=== PATIENT | female | born 1940 | race Caucasian/White ===

== ENCOUNTER 2022-06-24 15:29 | Emergency (ER) | payer MEDICARE, MEDICAID ==
[~2022-06-24] VITALS: Ht 162.6 cm; Wt 80.9 kg
[2022-06-24] MEDS ORDERED: hydrALAZINE 20mg/ml inj. IV ONE (16:15)
[2022-06-24 16:45] LABS: EOSINOPHILS # (AUTO) 0.1 X10'3 (0-0.9); EOSINOPHILS % (AUTO) 2.2 % (0-6); HEMATOCRIT 35.4 % (35.0-45.0); HEMOGLOBIN 11.9 g/dl (12.0-16.0); LYMPHOCYTES # (AUTO) 1.4 X10'3 (1.1-4.8); LYMPHOCYTES % (AUTO) 30.1 % (21-51); MEAN CORPUSCULAR HEMOGLOBIN 29.9 PG (27.0-31.0); MEAN CORPUSCULAR HGB CONC 33.7 g/dL (33.0-36.5); MEAN CORPUSCULAR VOLUME 88.8 FL (78-98); MEAN PLATELET VOLUME 7.8 FL (7.4-10.4); MONOCYTES # (AUTO) 0.4 X10'3 (0-0.9); MONOCYTES % (AUTO) 8.8 % (2-12); NEUTROPHILS # (AUTO) 2.6 X10'3 (1.8-7.7); NEUTROPHILS % (AUTO) 57.9 % (42-75); PLATELET COUNT 268 X10'3 (140-440); RED BLOOD COUNT 3.98 X10'6 (4.20-5.60); RED CELL DISTRIBUTION WIDTH 13.8 % (11.5-14.5); WHITE BLOOD COUNT 4.6 X10'3 (4.5-11.0)
[2022-06-24 16:57] LABS: ALANINE AMINOTRANSFERASE 16 U/L (12-78); ALBUMIN 3.5 G/DL (3.4-5.0); ALBUMIN/GLOBULIN RATIO 1.3 (1.1-1.5); ALKALINE PHOSPHATASE 63 IU/L (46-116); ANION GAP 5 (8-16); ASPARTATE AMINO TRANSFERASE 15 U/L (10-37); BILIRUBIN,TOTAL 0.2 MG/DL (0.1-1.0); BLOOD UREA NITROGEN 21 MG/DL (7-18); BUN/CREATININE RATIO 24.7 (10.0-20.0); CHLORIDE 100 MMOL/L (99-107); CREATININE 0.85 MG/DL (0.40-0.90); GLUCOSE 110 MG/DL (70-104); POTASSIUM 4.2 MMOL/L (3.5-5.1); SODIUM 134 MMOL/L (135-145); TOTAL CARBON DIOXIDE 28.9 MMOL/L (24-32); TOTAL PROTEIN 6.3 G/DL (6.4-8.2); eGFR 65 ML/MIN
[2022-06-24] MEDS ORDERED: metoprolol succinate 25mg (24-HOUR) SR. Tablet PO STA (17:11)
[2022-06-24 18:19] VITALS: BP 160/62
== END 2022-06-24 18:15 | disposition home or self-care (01) ==
LOC: ER 15:32
DX: I10 Essential (primary) hypertension (principal); R51.9 Headache, unspecified
CPT/HCPCS: 36415; 70450; 71045; 80053; 83880; 84484; 85025; 93005; 96374; 99285; J0360

== ENCOUNTER 2022-06-26 09:42 | Inpatient (IN) | payer MEDICARE, MEDICAID ==
[~2022-06-26] VITALS: Ht 162.6 cm; Wt 80.9 kg
[2022-06-26] MEDS ORDERED: aspirin 81mg tab.chew PO ONE (10:35)
[2022-06-26 10:58] LABS: EOSINOPHILS # (AUTO) 0.1 X10'3 (0-0.9); EOSINOPHILS % (AUTO) 1.8 % (0-6); HEMATOCRIT 33.9 % (35.0-45.0); HEMOGLOBIN 11.6 g/dl (12.0-16.0); LYMPHOCYTES # (AUTO) 1.2 X10'3 (1.1-4.8); LYMPHOCYTES % (AUTO) 33.2 % (21-51); MEAN CORPUSCULAR HGB CONC 34.2 g/dL (33.0-36.5); MEAN CORPUSCULAR VOLUME 87.9 FL (78-98); MEAN PLATELET VOLUME 7.5 FL (7.4-10.4); MONOCYTES # (AUTO) 0.3 X10'3 (0-0.9); MONOCYTES % (AUTO) 7.5 % (2-12); NEUTROPHILS # (AUTO) 2.1 X10'3 (1.8-7.7); NEUTROPHILS % (AUTO) 56.5 % (42-75); PLATELET COUNT 284 X10'3 (140-440); RED BLOOD COUNT 3.86 X10'6 (4.20-5.60); RED CELL DISTRIBUTION WIDTH 13.6 % (11.5-14.5); WHITE BLOOD COUNT 3.7 X10'3 (4.5-11.0)
[2022-06-26 11:22] LABS: ALANINE AMINOTRANSFERASE 27 U/L (12-78); ALBUMIN 3.6 G/DL (3.4-5.0); ALBUMIN/GLOBULIN RATIO 1.3 (1.1-1.5); ALKALINE PHOSPHATASE 60 IU/L (46-116); ANION GAP 6 (8-16); ASPARTATE AMINO TRANSFERASE 15 U/L (10-37); BILIRUBIN,TOTAL 0.3 MG/DL (0.1-1.0); BLOOD UREA NITROGEN 13 MG/DL (7-18); BUN/CREATININE RATIO 17.8 (10.0-20.0); CALCIUM 8.8 MG/DL (8.5-10.1); CHLORIDE 95 MMOL/L (99-107); CREATININE 0.73 MG/DL (0.40-0.90); GLUCOSE 92 MG/DL (70-104); MAGNESIUM 1.9 MG/DL (1.5-2.4); POTASSIUM 4.1 MMOL/L (3.5-5.1); SODIUM 128 MMOL/L (135-145); TOTAL CARBON DIOXIDE 27.2 MMOL/L (24-32); TOTAL PROTEIN 6.3 G/DL (6.4-8.2); eGFR 77 ML/MIN
[2022-06-26] MEDS ORDERED: nitroGLYCERIN 1gm ointment UD TP ONE (13:40)
[2022-06-26] MEDS ORDERED: amLODIPine 5mg tablet PO ONE (13:45)
[2022-06-26] MEDS ORDERED: amLODIPine 2.5mg tablet PO ONE (13:55)
[2022-06-26] MEDS ORDERED: morphine 2 MG/ML inj. syringe IV PRN ×2 (14:30)
[2022-06-26] MEDS ORDERED: HYDROcodone/acetaminophen 5mg/325mg tablet PO PRN (14:30)
[2022-06-26] MEDS ORDERED: magnesium hydroxide 30ml (MOM) UD suspension PO PRN (14:30)
[2022-06-26] MEDS ORDERED: acetaminophen 325mg tablet PO PRN ×2 (14:30)
[2022-06-26] MEDS ORDERED: mag hydrox/Alum hydrox/simeth 30ml oral suspension PO PRN (14:30)
[2022-06-26] MEDS ORDERED: ondansetron/PF 4mg/2ml inj IV PRN (14:30)
[2022-06-26] MEDS ORDERED: LEVO150T8 PO (15:34)
[2022-06-26] MEDS ORDERED: NITR0.4T51 SL (15:34)
[2022-06-26] MEDS ORDERED: LISI40TA13 PO (15:34)
[2022-06-26 17:05] VITALS: BP 222/68
--- NOTE | 2022-06-26 17:05 | NUR ---
Patient in room PCU 3024. I have received report from Daxa ROJAS and had the opportunity to ask questions and assume patient care. Pt arrived via wheelchair. Pt alert and oriented x 4. No distress noted. PIV noted to R AC 22g. BP 222/68 HR 51 T 97.1F, RR 16, Pain 0/10. Pt has nitro paste patch to left upper chest
[2022-06-26] MEDS ORDERED: cloNIDine 0.1 mg tablet PO ONE (17:35)
[2022-06-26] MEDS ORDERED: nitroGLYCERIN 0.4mg SUBLingual tab SL PRN (17:40)
--- NOTE | 2022-06-26 18:15 | NUR ---
Problems reprioritized. Patient report given, questions answered & plan of care reviewed with Aubrie INSPECTOR.
--- NOTE | 2022-06-26 18:57 | NUR ---
Pt reported to LN that she controls her DM2 with diet at home, most recent A1C was 6.0. LN updated pt diet to CC/HH.
[2022-06-26 19:00] VITALS: BP 200/70
[2022-06-26 19:25] LABS: CLARITY,URINE CLEAR (Clear); COLOR,URINE YELLOW (Yellow); GLUCOSE, URINE NEGATIVE (Neg); KETONES,URINE NEGATIVE (Neg); LEUKOCYTE ESTERASE ,URINE NEGATIVE (Neg); NITRITES, URINE NEGATIVE (Neg); OCCULT BLOOD,URINE NEGATIVE (Neg); PROTEIN,URINE TRACE mg/dl (Neg); UROBILINOGEN,URINE 0.2 E.U/dL (0.2-1.0)
[2022-06-26 19:29] LABS: UA COLLECTION TYPE VOIDED
[2022-06-26 19:37] LABS: BACTERIA,URINE NONE SEEN /HPF (Neg); HYALINE CASTS 0-3 /LPF (NEGATIVE); MUCUS STRANDS FEW /LPF (Neg); RBC,URINE 0-2 /HPF (0-2); SQUAMOUS EPITHELIAL CELL,UR FEW /LPF (FEW); WBC,URINE 0-4 /HPF (0-4)
--- NOTE | 2022-06-26 19:38 | NUR ---
Pt given one time dose of Clonidine @1735 per MD, BP upon arrival 222/68 on previous shift. BP @1926 - 140/58, pt resting comfortably, no c/o pain att.
[2022-06-26] MEDS: docusate sod 100mg capsule PO SCH (20:00)
--- NOTE | 2022-06-26 22:09 | NUR ---
Page sent to @ approx 2200 -Pt 3024A, Yarelis Villalobos, admit 06/26 hypertensive urgency, came to floor @ approx 1700, BP 222/68, MD gave one time dose PO clonidine @1736, BP came down to 140/58 @ 1926. BP @ 2145 - 175/57, no c/o pain. Please advise-Aubrie Bradley@[phone].
[2022-06-26] MEDS ORDERED: cloNIDine 0.1 mg tablet PO PRN ×2 (22:25→22:30)
[2022-06-26 23:00] VITALS: BP 152/58
[2022-06-27 03:00] VITALS: BP 129/56
[2022-06-27 06:00] VITALS: BP 158/60
--- NOTE | 2022-06-27 07:02 | NUR ---
This RN evaluated and agrees w/the physical assessment f/this patient.
[2022-06-27 07:23] LABS: BASOPHILS % (AUTO) 1.2 % (0-1); EOSINOPHILS # (AUTO) 0.1 X10'3 (0-0.9); EOSINOPHILS % (AUTO) 1.6 % (0-6); LYMPHOCYTES # (AUTO) 1.3 X10'3 (1.1-4.8); LYMPHOCYTES % (AUTO) 35.5 % (21-51); MEAN CORPUSCULAR HEMOGLOBIN 30.2 PG (27.0-31.0); MEAN CORPUSCULAR HGB CONC 34.3 g/dL (33.0-36.5); MEAN CORPUSCULAR VOLUME 88.2 FL (78-98); MEAN PLATELET VOLUME 8.1 FL (7.4-10.4); MONOCYTES # (AUTO) 0.2 X10'3 (0-0.9); NEUTROPHILS # (AUTO) 1.9 X10'3 (1.8-7.7); NEUTROPHILS % (AUTO) 54.7 % (42-75); PLATELET COUNT 284 X10'3 (140-440); RED BLOOD COUNT 3.97 X10'6 (4.20-5.60); RED CELL DISTRIBUTION WIDTH 13.5 % (11.5-14.5); WHITE BLOOD COUNT 3.6 X10'3 (4.5-11.0)
[2022-06-27 07:35] LABS: ALBUMIN 3.4 G/DL (3.4-5.0); ANION GAP 3 (8-16); BLOOD UREA NITROGEN 19 MG/DL (7-18); BUN/CREATININE RATIO 26.4 (10.0-20.0); CHLORIDE 96 MMOL/L (99-107); CREATININE 0.72 MG/DL (0.40-0.90); GLUCOSE 89 MG/DL (70-104); POTASSIUM 4.5 MMOL/L (3.5-5.1); SODIUM 128 MMOL/L (135-145); eGFR 78 ML/MIN
[2022-06-27] MEDS ORDERED: lisinopril 20mg tablet PO SCH (08:00)
[2022-06-27] MEDS ORDERED: levoTHYROXINE 75mcg tablet PO SCH (08:00)
[2022-06-27] MEDS: docusate sod 100mg capsule PO SCH (08:25)
[2022-06-27 10:01] VITALS: BP 134/46
[2022-06-27] MEDS ORDERED: CLON0.1T2 PO (10:56)
[2022-06-27 11:00] VITALS: BP 134/46
--- NOTE | 2022-06-27 12:56 | NUR ---
PATIENT ACCOUNTS COORDINATOR documentation: I have reviewed and agree with all interventions, assessments performed and documented by LAURENCE JAVIER LVN.
--- NOTE | 2022-06-27 13:48 | NUR ---
All Written and verbal instructions provided to patient. She verbalized understanding. PIV discontinued. Telebox discontinued. Pt encouraged to monitor BP after sitting at rest for 5 minutes. She verbalized understanding. Pt collected all belongings with friend. Pt stated she is missing an aric color shirt. [employer] called [facility] and ER. No shirt found. Pt stated if shirt is able to be found, to call her. Pt ambulated to lobby and leaving with friend's vehicle. Addendum: 06/27/22 at 1353 by Nick Cho LVN, LVN Amended: Links added.
== END 2022-06-27 13:49 | disposition home health service (06) | DRG 305 ==
LOC: ER 09:43 → ED HOLD 14:34 → EDBEDREQ 16:09 → PCU 3S 17:17
PROVIDERS: ADMIT Internal Medicine; ATTEND Internal Medicine
DX: I16.0 Hypertensive urgency (principal); E87.1 Hypo-osmolality and hyponatremia; E03.9 Hypothyroidism, unspecified; Z79.899 Other long term (current) drug therapy; Z82.3 Family history of stroke; Z90.49 Acquired absence of other specified parts of digestive tract; Z98.891 History of uterine scar from previous surgery
CPT/HCPCS: 36415; 70450; 71045; 80048; 80053; 81001; 83735; 83880; 84443; 84484; 85025; 87081; 93005; 99285; G0378; J7030